=== PATIENT | female | born 1960 | race Caucasian/White ===

== ENCOUNTER 2016-10-29 18:24 | Emergency (ER) | payer BC, OTHER ==
[2016-10-29 18:47] LABS: BASOPHIL# 0.1 X 10^3uL (0.0-0.1); BASOPHILS 0.9 % (0.0-2.0); EOSINOPHILS 3.4 % (0.0-6.0); EOSINOPHILS# 0.2 X 10^3uL (0.0-0.4); HEMATOCRIT 42.2 % (36.0-48.0); HEMOGLOBIN 14.4 g/dL (12.0-16.0); LYMPHOCYTES 35.6 % (20.0-40.0); MEAN CELL VOLUME 86.1 fL (84.0-102.0); MEAN CORPUS. HGB CONCENTRATION 34.1 g/dL (32.0-36.0); MEAN CORPUSCULAR HEMOGLOBIN 29.3 pg (29.0-35.0); MEAN PLATELET VOLUME 7.8 fL (7.4-10.4); MONOCYTES 7.7 % (2.0-10.0); MONOCYTES# 0.4 X 10^3uL (0.2-1.0); NEUTROPHILS 52.4 % (54.0-75.0); NEUTROPHILS# 2.9 X 10^3uL (2.6-6.7); PLATELET COUNT 422 X 10^3uL (130-440); RED CELL DISTRIBUTION WIDTH 12.4 % (11.5-14.5); WHITE BLOOD COUNT 5.6 X 10^3uL (3.9-10.7)
[2016-10-29 18:55] LABS: BLOOD UREA NITROGEN 18 mg/dL (7-17); CALCIUM 9.5 mg/dL (8.4-10.2); CHLORIDE 103 mmol/L (98-107); CREATININE 0.8 mg/dL (0.5-1.0); EST GLOMERULAR FILTRATION RATE > 60 mL/min; GLUCOSE 85 mg/dL (70-100); MAGNESIUM 2.1 mg/dL (1.6-2.3); POTASSIUM 3.5 mmol/L (3.5-5.1); SODIUM 141 mmol/L (137-145)
[2016-10-29 19:08] LABS: TROPONIN I < 0.012 ng/mL (0.00-0.034)
--- NOTE | 2016-10-29 19:31 | ER PHYSICIAN DOCUMENTATION ---
Physician Documentation [facility] Name:Bhavesh Cardenas Age:55 yrs Sex:Female :1960 Arrival Date:10/29/2016 Time:18:24 Bed4 Private MD:Zenia Wilkins ED, Scott Disposition: 10/29 19:01 Critical Care: not applicable. sc Disposition: 10/29/16 19:06 Discharged to Home/Self Care. Impression: Atypical Chest Pain. - Condition is Good. - Discharge Instructions: CHEST PAIN Atypical - CHEST PAIN, Uncertain Cause. - Medical Reconciliation form form. - Follow up: Zenia Wilkins DO; When: 1 - 2 days; Reason: Continuance of care. - Problem is new. - Symptoms have improved. HPI: 19:02 This 55 yrs old Female presents to ER via Private Vehicle with complaints of sc Chest Pain. 19:02 The patient or guardian reports chest pain that is located primarily in the left arm sc shoulder and elbow and palm of left hand, tingling and pain. Onset: 4 day(s) ago. There has been no movement of pain. Associated signs and symptoms: The patient has no apparent associated signs or symptoms. Duration: The patient or guardian reports multiple episodes, that wax and wane, resolved with aleve. Historical: - Allergies: No known drug Allergies; - Home Meds: 1. Hormone replacement 2. multivitamin with minerals oral 3. Aleve - PMHx: None; - PSHx: Breast augmentation; TONSILLECTOMY; Hysterectomy; - Tetanus: unknown. - Ebola Screening: : No symptoms or risks identified at this time. . - Immunization history: Flu Vaccine None. - Social history: Smoking status: Patient states was never smoker of tobacco. Patient/guardian denies using alcohol, street drugs. ROS: 19:03 Constitutional: Negative for fever, chills, and weight loss. sc Eyes: Negative for injury, pain, redness, and discharge. ENT: Negative for injury, pain, and discharge. Neck: Negative for injury, pain, and swelling. Respiratory: Negative for shortness of breath, cough, wheezing, and pleuritic chest pain. Abdomen/GI: Negative for abdominal pain, nausea, vomiting, diarrhea, and constipation. Back: Negative for injury and pain. Skin: Negative for injury, rash, and discoloration. 19:03 Neuro: Negative for headache, weakness, numbness, tingling, and seizure. sc 19:03 Cardiovascular: Negative for chest pain, edema, orthopnea, palpitations, paroxysmal nocturnal dyspnea. 19:03 MS/extremity: Positive for pain, paresthesias, Negative for injury or acute deformity, decreased range of motion, ecchymosis, erythema. Exam: Constitutional: This is a well developed, well nourished patient who is awake, alert, and in no acute distress. Head/Face: Normocephalic, atraumatic. Eyes: Pupils equal round and reactive to light, extra-ocular motions intact. Lids and lashes normal. Conjunctiva and sclera are non-icteric and not injected. Cornea within normal limits. Periorbital areas with no swelling, redness, or edema. ENT: Nares patent. No nasal discharge, no septal abnormalities noted. Tympanic membranes are normal and external auditory canals are clear. Oropharynx with no redness, swelling, or masses, exudates, or evidence of obstruction, uvula midline. Mucous membranes moist. Neck: Trachea midline, no thyromegaly or masses palpated, and no cervical lymphadenopathy. Supple, full range of motion without nuchal rigidity, or vertebral point tenderness. No meningismus. Chest/axilla: Normal chest wall appearance and motion. Nontender with no deformity. No lesions are appreciated. Cardiovascular: Regular rate and rhythm with a normal S1 and S2. No gallops, murmurs, or rubs. Normal PMI, no JVD. No pulse deficits. Respiratory: Lungs have equal breath sounds bilaterally, clear to auscultation and percussion. No rales, rhonchi or wheezes noted. No increased work of breathing, no retractions or nasal flaring. Abdomen/GI: Soft, non-tender, with normal bowel sounds. No distension or tympany. No guarding or rebound. No evidence of tenderness throughout. Back: No spinal tenderness. No costovertebral tenderness. Full range of motion. Skin: Warm, dry with normal turgor. Normal color with no rashes, no lesions, and no evidence of cellulitis. MS/ Extremity: Pulses equal, no cyanosis. Neurovascular intact. Full, normal range of motion, negative Homans's, calves equal bilaterally. 19:04 Neuro: Awake and alert, GCS 15, oriented to person, place, time, and situation. me Cranial nerves II-XII grossly intact. Motor strength 5/5 in all extremities. Sensory grossly intact. Cerebellar exam normal. Normal gait. 19:07 Cardiovascular: Rate: normal, Rhythm: regular. me Vital Signs: 18:42 BP 137 / 70; Pulse 82; Resp 20; Temp 98.0; Pulse Ox 97% on R/A; Weight 63.5 kg; Height co 5 ft. 6 in. (167.64 cm); Pain 6/10; 18:45 BP 145 / 71; Pulse 80; Resp 23; Pulse Ox 98% on R/A; ma 19:15 BP 114 / 67; Pulse 80; Resp 16; Pulse Ox 100% on R/A; ma 18:42 Body Mass Index 22.60 (63.50 kg, 167.64 cm) co MDM: 18:28 Patient medically screened. me 19:04 Differential diagnosis: acute myocardial infarction, acute pericarditis, anxiety, nerve sc impingement. Patient took aspirin within the past 24 hours. Patient did not receive fibrinolytic due to na. Data reviewed: vital signs, nurses notes, old medical records, lab test result(s), EKG, and as a result, I will discharge patient. 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 ECG:. 19:06 ED course: More consistent with nerve impingement than cardiac cause. me 19:49 EKG attached 10/29 18:51 Order name: CBC AUTO DIF, MDIF/RMOR IF IND [facility] 10/29 19:07 Interpretation: Normal. me 10/29 19:09 Order name: BASIC METABOLIC PANEL; Complete Time: 19:14 [facility] 10/29 19:14 Interpretation: Normal. me 10/29 19:09 Order name: MAGNESIUM; Complete Time: 19:14 [facility] 10/29 19:14 Interpretation: Normal. me 10/29 19:09 Order name: TROPONIN I; Complete Time: 19:14 [facility] 10/29 19:14 Interpretation: Normal. me / 18:39 Order name: 12-lead EKG; Complete Time: 18:44 me EC:04 Rate is 77 beats/min. Rhythm is regular. QRS [place] is Normal. IA interval is normal. QRS sc interval is normal. QT interval is normal. No Q waves. T waves are Normal. No ST changes noted. Clinical impression: Normal ECG. Interpreted by me. Reviewed by me. Dispensed Medications: No medications were administered Signatures: Aysha Deng RN RN ma Chew, Scott, MD MD sc Hofsess, Lily rh
--- NOTE | 2016-10-29 19:31 | ER NURSING DOCUMENTATION ---
Nurse's Notes [facility] Name:Bhavesh Cardenas Age:55 yrs Sex:Female :1960 Arrival Date:10/29/2016 Time:18:24 Bed4 Private MD:Zenia Wilkins Diagnosis:Atypical Chest Pain Presentation: 10/29 18:33 Presenting complaint: Patient states: Pt describes pain to left shoulder radiating to ma hand with fingers tingling States lasted for several hours Friday Resolved with Aleve For past 2 hours has had pain to left antecubital area radiating to hand with tingling fingers States never had CP or SOB. Transition of care: Home. 18:33 Acuity: TOSHA 2 ma 18:33 Method Of Arrival: Private Vehicle ny Triage Assessment: 18:41 General: Appears in no apparent distress, Behavior is cooperative. Pain: Complains of ma pain in right antecubital area, dorsal aspect of right forearm, right wrist, right elbow and palmar aspect of right forearm. Cardiovascular: Rhythm is sinus rhythm. Historical: - Allergies: No known drug Allergies; - Home Meds: 1. Hormone replacement 2. multivitamin with minerals oral 3. Aleve - PMHx: None; - PSHx: Breast augmentation; TONSILLECTOMY; Hysterectomy; - Tetanus: unknown. - Ebola Screening: : No symptoms or risks identified at this time. . - Immunization history: Flu Vaccine None. - Social history: Smoking status: Patient states was never smoker of tobacco. Patient/guardian denies using alcohol, street drugs. Screenin:43 Infectious Disease Risk None. Abuse screen: Denies threats or abuse. Nutritional ma screening: No deficits noted. Assessment: 19:29 Reassessment: Patient denies pain at this time. Patient states feeling better. Patient ma states symptoms have improved. Patient appears in no apparent distress at this time. 19:30 Pain: Pain does not radiate. Pain began 2 hours ago. ny 19:30 Reassessment: No Aspirin per Dr Ross. ny Vital Signs: 18:42 BP 137 / 70; Pulse 82; Resp 20; Temp 98.0; Pulse Ox 97% on R/A; Weight 63.5 kg; Height ny 5 ft. 6 in. (167.64 cm); Pain 6/10; 18:45 BP 145 / 71; Pulse 80; Resp 23; Pulse Ox 98% on R/A; ma 19:15 BP 114 / 67; Pulse 80; Resp 16; Pulse Ox 100% on R/A; ma 18:42 Body Mass Index 22.60 (63.50 kg, 167.64 cm) ny ED Course: 18:25 Patient arrived in ED. em2 18:25 Zenia Wilkins DO is Private Physician. em2 18:28 Diogo Ross MD is Attending Physician. oh 18:30 EKG done. (by ED staff). Reviewed by Diogo Ross MD. ma 18:33 Aysha Deng, RN is Primary Nurse. ma 18:37 Inserted saline lock: 20 gauge in right antecubital area and blood collected. em1 18:38 Triage completed. ma 18:43 Valuables Remains with patient. ekg monitor on. Pulse ox on. NIBP on. ma 19:05 Zenia Wilkins DO is Referral Physician. oh 19:49 EKG attached rh Administered Medications: No medications were administered Outcome: 19:06 Discharge ordered by . oh 19:29 Discharged to home ny 19:29 Condition: stable 19:29 Discharge instructions given to patient, Instructed on discharge instructions, follow up and referral plans. Demonstrated understanding of instructions. 19:30 Patient left the ED. ny Signatures: Aysha Deng RN RN ma Chew, Scott, MD MD oh [employer], [employer]-tech em1 [place]-reg, [place]-reg em2 Lily Steele rh
== END 2016-10-29 19:31 | disposition home or self-care (01) ==
LOC: ER 18:24
DX: R07.89 Other chest pain (principal); R20.2 Paresthesia of skin; M79.602 Pain in left arm
CPT/HCPCS: 80048; 83735; 84484; 85025; 93005; 99284